=== PATIENT | female | born 2000 | race Caucasian/White ===

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

== ENCOUNTER 2020-10-05 05:07 | Emergency (ER) | payer OTHER ==
[~2020-10-05] VITALS: Ht 152.4 cm; Wt 40.8 kg
[2020-10-05 05:24] VITALS: BP 136/100
[2020-10-05] MEDS ORDERED: NACL 0.9% 1,000 ML IV ONE (06:10)
[2020-10-05] MEDS ORDERED: ALUMINUM HYD/MAG/SIMETHICONE 30 ML, DICYCLOMINE HCL LIQUID 20 MG, LIDOCAINE VISCOUS 2% ... PO ONE ×3 (06:10)
[2020-10-05] MEDS ORDERED: PANTOPRAZOLE 40 MG INJ VIAL IVP ONE (06:10)
[2020-10-05] MEDS ORDERED: ONDANSETRON 4 MG/2 ML VIAL IVP ONE (06:10)
[2020-10-05 06:32] LABS: BASOPHILS % (AUTO) 0.2 % (0.0-2.0); EOSINOPHILS % (AUTO) 0.1 % (0.0-4.0); HEMATOCRIT 39.8 % (36-48); HEMOGLOBIN 13.1 g/dL (12.0-16.0); LYMPHOCYTES # (AUTO) 0.7 K/uL (2.5-16.5); LYMPHOCYTES % (AUTO) 6.8 % (20.5-51.1); MEAN CORPUSCULAR HEMOGLOBIN 26 pg (27-31); MEAN CORPUSCULAR HGB CONC 33 g/dL (33-37); MEAN CORPUSCULAR VOLUME 77.3 fL (80-94); MONOCYTES # (AUTO) 0.4 K/uL (0.8-1.0); MONOCYTES % (AUTO) 3.2 % (1.7-9.3); NEUTROPHILS # (AUTO) 9.9 K/uL (1.8-7.7); NEUTROPHILS % (AUTO) 89.7 % (42.2-75.2); PLATELET COUNT (AUTO) 435 K/uL (140-450); RED BLOOD CELL COUNT(AUTO) 5.15 MIL/uL (4.20-5.40); RED CELL DISTRIBUTION WIDTH 15.8 % (11.6-13.7)
[2020-10-05] MEDS ORDERED: LIDOCAINE VISCOUS 2% 20 ML UDC ONE (06:33)
[2020-10-05] MEDS ORDERED: ALUMINUM HYD/MAG/SIMETHICONE 30 ML UDC ONE (06:33)
[2020-10-05] MEDS ORDERED: DICYCLOMINE HCL LIQUID 10 MG/5 ML UDC ONE (06:34)
[2020-10-05 06:48] LABS: ALBUMIN 4.6 g/dL (3.4-5.0); ANION GAP 15.8 (8-16); CREATININE 0.7 mg/dL (0.6-1.3); POTASSIUM 3.8 mmol/L (3.5-5.1); TOTAL BILIRUBIN 0.5 mg/dL (0.0-1.0)
[2020-10-05] MEDS ORDERED: OMEP20TC10 PO (08:08)
[2020-10-05] MEDS ORDERED: ONDA4TAB PO (08:08)
[2020-10-05 08:48] VITALS: BP 132/64
== END 2020-10-05 08:48 | disposition home or self-care (01) ==
LOC: MED 05:07
DX: R10.13 Epigastric pain (principal); R11.2 Nausea with vomiting, unspecified; R19.7 Diarrhea, unspecified; K21.9 Gastro-esophageal reflux disease without esophagitis
CPT/HCPCS: 80053; 83690; 85025; 96361; 96374; 96375; 99285; C9113; J2405; J7030

== ENCOUNTER 2021-04-12 06:17 | Emergency (ER) | payer OTHER ==
[~2021-04-12] VITALS: Ht 152.4 cm; Wt 40.4 kg
[~2021-04-12 06:17] MED LIST: OMEP20TC10 PO; ONDA4TAB PO
[2021-04-12 06:25] VITALS: BP 139/62
--- NOTE | 2021-04-12 06:25 | NUR ---
to bed ambulatory
--- NOTE | 2021-04-12 06:35 | NUR ---
ERMD at bedside for examination of patient
--- NOTE | 2021-04-12 06:39 | NUR ---
c/o ear pain x3 days. patient c/o itichiness and constantly over cleans the ear. patient pain 8/10 sharp and throbbing, constant, and radiates to the head becoming a headache. patient has some redness in the ear. has taken pain medication of ibuprofen with little to no relief. AAOx4. [facility] denies NKA
[2021-04-12] MEDS ORDERED: CIPR500T4 PO (06:44)
[2021-04-12] MEDS ORDERED: ACET-8386 PO (06:44)
--- NOTE | 2021-04-12 06:50 | NUR ---
Patient discharged with v/s stable. Written and verbal after care instructions given and explained. Patient alert, oriented and verbalized understanding of instructions. Ambulatory with steady gait. All questions addressed prior to discharge. ID band removed. Patient advised to follow up with PMD. Rx of cipro and hydrocodon-acetaminophen 5-325 given. Patient educated on indication of medication including possible reaction and side effects. Opportunity to ask questions provided and answered.
[2021-04-12 06:51] VITALS: BP 139/62
[2021-04-13] MEDS ORDERED: AMOX-1000 PO (22:22)
[2021-04-13] MEDS ORDERED: ACET-10509 PO (22:22)
[2021-04-13] MEDS ORDERED: IBUP-2213 PO (22:22)
[2021-04-13] MEDS ORDERED: ONDA-24 SL (22:22)
== END 2021-04-12 06:50 | disposition home or self-care (01) ==
LOC: MED 06:17
DX: H66.91 Otitis media, unspecified, right ear (principal); K21.9 Gastro-esophageal reflux disease without esophagitis; Z79.899 Other long term (current) drug therapy
CPT/HCPCS: 99283

== ENCOUNTER 2021-04-13 19:47 | Emergency (ER) | payer OTHER ==
[~2021-04-13] VITALS: Ht 152.4 cm; Wt 40.4 kg
[~2021-04-13 19:47] MED LIST changes: +ACET-8386 PO; +CIPR500T4 PO
[2021-04-13 19:57] VITALS: BP 128/60
--- NOTE | 2021-04-13 20:00 | NUR ---
TO LOBBY A/W BED AMBULATORY
--- NOTE | 2021-04-13 20:09 | NUR ---
PT TAKEN TO ROQUE Omer
--- NOTE | 2021-04-13 20:11 | NUR ---
DR. QUEVEDO WITH PT FOR FURTHER EVALUATION.
--- NOTE | 2021-04-13 20:14 | NUR ---
20 Y/O FEMALE C/O RIGHT EAR PAIN 01/16 DESCRIBES ASCHING X4 DAYS. PT STATES SHE WAS SEEN IN ER YESTERDAY, GIVEN RX WITH NO RELIEF. DENIES N/V, DENIES FEVER/CHILLS. DENIES PMH NKA
[2021-04-13] MEDS ORDERED: AMOXICILLIN 500 MG CAP PO ONE (20:30)
[2021-04-13] MEDS ORDERED: ACETAMINOPHEN EXTRA STRENGTH 500 MG TAB PO ONE (20:30)
[2021-04-13] MEDS ORDERED: KETOROLAC 15 MG/ML VIAL IM ONE (20:30)
[2021-04-13] MEDS ORDERED: ONDANSETRON 4 MG ODT PO ONE (22:15)
[2021-04-13] MEDS ORDERED: AMOX-1000 PO (22:22)
[2021-04-13] MEDS ORDERED: ONDA-188 SL (22:22)
[2021-04-13] MEDS ORDERED: IBUP-2213 PO (22:22)
[2021-04-13] MEDS ORDERED: ACET-10509 PO (22:22)
[2021-04-13 22:34] VITALS: BP 128/60
--- NOTE | 2021-04-13 22:35 | NUR ---
Patient discharged with v/s stable. Written and verbal after care instructions given and explained. Patient alert, oriented and verbalized understanding of instructions. Ambulatory with steady gait. All questions addressed prior to discharge. ID band removed. Patient advised to follow up with PMD. Rx of TYLENOL, AMOXICILLIN, IBUPROFEN, ZOFRAN given. Patient educated on indication of medication including possible reaction and side effects. Opportunity to ask questions provided and answered.
== END 2021-04-13 22:33 | disposition home or self-care (01) ==
LOC: MED 19:47
DX: H66.91 Otitis media, unspecified, right ear (principal); K21.9 Gastro-esophageal reflux disease without esophagitis; Z79.899 Other long term (current) drug therapy
CPT/HCPCS: 70450; 96372; 99284; J1885; Q0162

== ENCOUNTER 2021-10-30 13:32 | Emergency (ER) | payer OTHER ==
[~2021-10-30] VITALS: Ht 162.6 cm; Wt 38.6 kg
[~2021-10-30 13:32] MED LIST changes: +ACET-10509 PO; +AMOX-1000 PO; +IBUP-2213 PO; +ONDA-188 SL
--- NOTE | 2021-10-30 13:41 | NUR ---
21 Y/O F WC'D TO BED 2, C/O N/V/D AND GOMEZ X 2DAYS, THE WHOLE FAMILY IS SICK AT HOME WITH SAME S/S, DENIES FEVER AT THIS TIME. NKDA DENIES PMH
--- NOTE | 2021-10-30 13:41 | NUR ---
pt w/c assisted to bed
[2021-10-30 13:43] VITALS: BP 111/65
--- NOTE | 2021-10-30 13:43 | NUR ---
DR COLLIER AT BEDSIDE FOR MSE
[2021-10-30] MEDS ORDERED: PROCHLORPERAZINE 10 MG/2 ML VIAL IVP ONE (13:50)
[2021-10-30] MEDS ORDERED: NACL 0.9% 1,000 ML IV ONE (13:50)
[2021-10-30 14:16] LABS: BASOPHILS # (AUTO) 0.2 K/uL (0.00-0.22); BASOPHILS % (AUTO) 2.2 % (0.0-2.0); EOSINOPHILS % (AUTO) 0.6 % (0.0-4.0); HEMATOCRIT 35.6 % (36-48); HEMOGLOBIN 11.7 g/dL (12.0-16.0); LYMPHOCYTES # (AUTO) 0.7 K/uL (2.5-16.5); LYMPHOCYTES % (AUTO) 9.9 % (20.5-51.1); MEAN CORPUSCULAR HEMOGLOBIN 24 pg (27-31); MEAN CORPUSCULAR HGB CONC 33 g/dL (33-37); MEAN CORPUSCULAR VOLUME 73.3 fL (80-94); MONOCYTES # (AUTO) 0.5 K/uL (0.8-1.0); MONOCYTES % (AUTO) 7.4 % (1.7-9.3); NEUTROPHILS # (AUTO) 5.6 K/uL (1.8-7.7); NEUTROPHILS % (AUTO) 79.9 % (42.2-75.2); PLATELET COUNT (AUTO) 440 K/uL (140-450); RED BLOOD CELL COUNT(AUTO) 4.86 MIL/uL (4.20-5.40)
[2021-10-30 14:44] LABS: ALBUMIN 4.4 g/dL (3.4-5.0); ANION GAP 18.9 (8-16); CARBON DIOXIDE 21.8 mmol/L (21-32); CREATININE 0.5 mg/dL (0.6-1.3); POTASSIUM 3.7 mmol/L (3.5-5.1); TOTAL BILIRUBIN 0.7 mg/dL (0.0-1.0)
[2021-10-30] MEDS ORDERED: PROCHLORPERAZINE 10 MG/2 ML VIAL ONE (14:52)
[2021-10-30] MEDS ORDERED: ONDANSETRON 4 MG ODT PO ONE (15:50)
[2021-10-30] MEDS ORDERED: ONDA-188 PO (15:51)
[2021-10-30] MEDS ORDERED: BISM262T28 PO (15:59)
[2021-10-30 16:22] VITALS: BP 107/61
--- NOTE | 2021-10-30 16:22 | NUR ---
Patient discharged with v/s stable. Written and verbal after care instructions given and explained. Patient alert, oriented and verbalized understanding of instructions. Ambulatory with steady gait. All questions addressed prior to discharge. ID band removed. Patient advised to follow up with PMD. Rx of BISMUTH, ZOFRAN given. Patient educated on indication of medication including possible reaction and side effects. Opportunity to ask questions provided and answered.
== END 2021-10-30 16:22 | disposition home or self-care (01) ==
LOC: MED 13:32
DX: A08.4 Viral intestinal infection, unspecified (principal); D50.9 Iron deficiency anemia, unspecified; R11.2 Nausea with vomiting, unspecified; K21.9 Gastro-esophageal reflux disease without esophagitis; Z79.899 Other long term (current) drug therapy
CPT/HCPCS: 36415; 80053; 81002; 81025; 83690; 85025; 96361; 96374; 99283; J0780; J7030; Q0162